=== PATIENT | female | born 1970 | race Two or more races ===

== ENCOUNTER 2022-08-05 10:38 | Day surgery (SDC) | payer OTHER ==
[~2022-08-05] VITALS: Ht 162.6 cm; Wt 108.0 kg
[~2022-08-05 10:38] MED LIST: COZAAR25 MG PO; SYNTHROID125 MCG PO; TENORMIN25 MG PO
== END 2022-08-05 19:15 | disposition home or self-care (01) ==
LOC: CIR.AMB 10:38
PROVIDERS: ATTEND Student in an Organized Health Care Education/Training Program
DX: N84.0 Polyp of corpus uteri (principal); N93.8 Other specified abnormal uterine and vaginal bleeding; Z20.822 Contact with and (suspected) exposure to COVID-19